=== PATIENT | female | born 1960 | race Caucasian/White ===

== ENCOUNTER 2020-08-20 16:12 | Outpatient (CLI) | payer OTHER, SELFPAY ==
--- NOTE | ~2020-08-20 | MM_ITS ---
EXAMINATION: MM screening [facility] BI w abhijit HISTORY: Screening mammogram TECHNIQUE: Craniocaudal and mediolateral oblique 3-D tomosynthesis images were obtained and synthetic 2-D images were generated. CAD analysis was submitted and interpreted. COMPARISON: 05/21/2019, 11/30/2017, 08/09/2015 BREAST PARENCHYMAL COMPOSITION: There are scattered areas of fibroglandular density. FINDINGS: There is stable architectural distortion in the upper outer quadrant of the left breast at the site of prior excisional biopsy. There is no evidence of suspicious mass, calcification, or archi tectural distortion to suggest malignancy in either breast. There has been no suspicious interval mami nge. IMPRESSION: 1. No mammographic evidence of malignancy. 2. Recommend routine screening mammography in one year. BI-RADS Category 2: Benign finding(s). Reviewed, dictated and finalized at location A. PROJECT MANAGER
== END 2020-08-20 16:13 | disposition home or self-care (01) ==
LOC: ANHIMG 16:14
PROVIDERS: PCP Family Medicine; Visit Provider Family Medicine
DX: Z12.31 Encounter for screening mammogram for malignant neoplasm of breast (principal)
CPT/HCPCS: 77063; 77067

== ENCOUNTER 2020-10-24 09:17 | Outpatient (CLI) | payer OTHER, SELFPAY | END 2020-10-24 09:18 | disposition home or self-care (01) | LOC: ANHCOVIDVC 09:17 | PROVIDERS: PCP Family Medicine | DX: Z23 Encounter for immunization (principal) | CPT/HCPCS: 0001A; 91300 ==

== ENCOUNTER 2020-11-17 09:18 | Outpatient (CLI) | payer OTHER, SELFPAY | END 2020-11-17 09:19 | disposition home or self-care (01) | LOC: ANHCOVIDVC 09:18 | PROVIDERS: PCP Family Medicine | DX: Z23 Encounter for immunization (principal) | CPT/HCPCS: 0002A; 91300 ==

== ENCOUNTER 2021-11-10 16:34 | Outpatient (CLI) | payer OTHER, SELFPAY ==
--- NOTE | ~2021-11-10 | MM_ITS ---
EXAMINATION: MM screening [facility] BI w abhijit HISTORY: Screening mammogram TECHNIQUE: Craniocaudal and mediolateral oblique 3-D tomosynthesis images were obtained and synthetic 2-D images were generated. CAD analysis was submitted and interpreted. COMPARISON: 08/20/2020, 05/21/2019 BREAST PARENCHYMAL COMPOSITION: There are scattered areas of fibroglandular density. FINDINGS: Again noted is stable architectural distortion in the upper outer quadrant of the left dena st at the site of prior excisional biopsy. There is no suspicious mass, calcification, or architectur al distortion to suggest malignancy in either breast. There has been no suspicious interval change. IMPRESSION: 1. No mammographic evidence of malignancy. 2. Recommend routine screening mammography in one year. BI-RADS Category 2: Benign finding(s). Reviewed, dictated and finalized at location A.
== END 2021-11-10 16:35 | disposition home or self-care (01) ==
LOC: ANHIMG 16:35
PROVIDERS: PCP Family Medicine; Visit Provider Family Medicine
DX: Z12.31 Encounter for screening mammogram for malignant neoplasm of breast (principal)
CPT/HCPCS: 77063; 77067

== ENCOUNTER 2022-04-29 01:21 | Day surgery (SDC) | payer OTHER, SELFPAY ==
[2022-04-14 14:12] VITALS: BMI 22.8
--- NOTE | 2022-04-28 10:19 | WPDANESEPPF ---
Anes - Initial Pre Proc Eval Procedure: Operation Date: 04/29/22 08:30 Proposed Procedures p Screening Colonoscopy - Artis Kwon MD Date/Time: 04/28/22 10:19 Surgeon: Artis Kwon MD Pre Op Diagnosis: neoplasm screening Patient Data Age: 61 Gender: F Height: 1.75 m Weight: 70 kg Allergies Allergy/AdvReac Type Severity Reaction Status Date / Time azithromycin Allergy Unknown gi upset Verified 04/29/22 07:12 cephalexin Allergy Unknown sob, upset Verified 04/29/22 07:12 stomach Sulfa (Sulfonamide Allergy Unknown Skin Verified 04/29/22 07:12 Antibiotics) Reaction Home Medications Medication Instructions Recorded Confirmed Type ascorbate calcium (vitamin C) 500 500 mg PO DAILY 11/18/21 04/29/22 History mg tablet calcium carbonate 400 mg calcium 400 mg PO DAILY 11/18/21 04/29/22 History (1,000 mg) chewable tablet (Antacid Ultra Strength) magnesium sulfate 100 mg capsule 100 mg PO DAILY 11/18/21 04/29/22 History multivitamin (Daily Multi-Vitamin 1 tablet PO DAILY 11/18/21 04/29/22 History tablet) omega-3 fatty acids-fish oil 360 1 cap PO DAILY 11/18/21 04/29/22 History mg-1,200 mg capsule (Fish Oil) triamcinolone acetonide 0.1 % 1 applic topical TID #453.6 grams 02/09/22 04/29/22 Rx topical cream Patient hx anesthesia problems: none Family hx anesthesia problems: none Results Review: All pre-operative results and documents have been reviewed as part of the pre-operative evaluation. [facility] Surgical History Surgical History History of removal of cyst Family History Family History (Updated 11/18/21 @ 15:37 by Yolanda Mcguire CMA) Mother Lung cancer Social History Social History (Updated 11/18/21 @ 15:38 by Yolanda Mcguire CMA) Smoking status: Former smoker Second hand tobacco smoke exposure: No Alcohol intake: current Drinks per week: 2 Alcohol use details: OCCASIONAL Substance use type: does not use Living arrangements: with family Spiritual care concerns: No Anes - Eval Final PreProcedure Day of Procedure 04/28/22 10:19 Patient weight: normal Heart: regular rate and rhythm Lungs: clear to auscultation and normal air movement Airway: Mallampati scale class II Neurological: alert and oriented Last oral intake: >/= 8 hours ASA classification: II Emergent: no Anesthetic plan: proceed Anesthesia type and monitoring: general GIVS and standard monitoring Results Review: All pre-operative results and documents have been reviewed as part of the pre-operative evaluation. Informed Consent: The patient's anesthetic plan and its attendant risks and benefits were discussed with the patient/family/POA. Questions were solicited and answers provided to the satisfaction of the patient/family/POA.
[2022-04-29 07:13] VITALS: BP 149/67; PULSE 58; RESP 16; TEMP 36.3; O2SAT 100
[2022-04-29] MEDS: LACTATED RINGERS 1,000 ML 150 ML IV CONT (07:20)
--- NOTE | 2022-04-29 07:55 | PM.IMHP ---
H&P: HPI History of Present Illness Date/Time: 04/29/22 07:55 Chief Complaint: Neoplasia screening. Narrative: This is a 61-year-old white female patient presents for neoplasia screening colonoscopy. patient states bowel habits are currently normal. She denies abdominal pain. She denies any blood in his stools. Family history is noncontributory. Last colonoscopy 2009 was unremarkable. Review of Systems Review of Systems: Review of systems noncontributory. [facility] Surgical History Surgical History History of removal of cyst Family History Family History (Updated 11/18/21 @ 15:37 by Yolanda Mcguire CMA) Mother Lung cancer Social History Social History (Updated 11/18/21 @ 15:38 by Yolanda Mcguire CMA) Smoking status: Former smoker Second hand tobacco smoke exposure: No Alcohol intake: current Drinks per week: 2 Alcohol use details: OCCASIONAL Substance use type: does not use Living arrangements: with family Spiritual care concerns: No Meds Home Medications and Allergies Home Medications Medication Instructions Recorded Confirmed Type ascorbate calcium (vitamin C) 500 500 mg PO DAILY 11/18/21 04/29/22 History mg tablet calcium carbonate 400 mg calcium 400 mg PO DAILY 11/18/21 04/29/22 History (1,000 mg) chewable tablet (Antacid Ultra Strength) magnesium sulfate 100 mg capsule 100 mg PO DAILY 11/18/21 04/29/22 History multivitamin (Daily Multi-Vitamin 1 tablet PO DAILY 11/18/21 04/29/22 History tablet) omega-3 fatty acids-fish oil 360 1 cap PO DAILY 11/18/21 04/29/22 History mg-1,200 mg capsule (Fish Oil) triamcinolone acetonide 0.1 % 1 applic topical TID #453.6 grams 02/09/22 04/29/22 Rx topical cream Allergies Allergy/AdvReac Type Severity Reaction Status Date / Time azithromycin Allergy Unknown gi upset Verified 04/29/22 07:12 cephalexin Allergy Unknown sob, upset Verified 04/29/22 07:12 stomach Sulfa (Sulfonamide Allergy Unknown Skin Verified 04/29/22 07:12 Antibiotics) Reaction Vital Signs Vital Signs - 24 hr 04/29/22 07:13 Temperature 97.3 F L Pulse Rate 58 L Respiratory Rate 16 Blood Pressure 149/67 H Pulse Oximetry 100 Oxygen Delivery Room Air Exam Narrative: Physical exam reveals patient be alert. Vital signs stable. HEENT exam is unremarkable. Patient is anicteric. Lungs are clear to auscultation and percussion. Heart is without murmur or extra sounds. Abdomen bowel sounds are present soft nontender with no organomegaly. Digital external rectal exam is normal. Assessment and Plan Assessment and plan (1) Encounter for screening colonoscopy: Code(s): Z12.11 - Encounter for screening for malignant neoplasm of colon Status: Acute Assessment and Plan: Patient presents for screening colonoscopy. Appears to be at average risk for colon polyps. Further recommendations will be given after endoscopy.
[2022-04-29 09:00] VITALS: BP 135/72; PULSE 67; RESP 16; O2SAT 100
[2022-04-29 09:10] VITALS: BP 143/85; PULSE 66; RESP 15; O2SAT 100
[2022-04-29 09:20] VITALS: BP 145/82; PULSE 64; RESP 15; O2SAT 100
== END 2022-04-29 09:22 | disposition home or self-care (01) ==
PROVIDERS: PCP Family Medicine; Visit Provider Internal Medicine Gastroenterology
PROC: 0DJD8ZZ Inspection of Lower Intestinal Tract, Via Natural or Artificial Opening Endoscopic (ICD-10-PCS; CPT 45378; principal; 2022-04-29 08:30)
DX: Z12.11 Encounter for screening for malignant neoplasm of colon (principal); K64.8 Other hemorrhoids; Z87.891 Personal history of nicotine dependence
CPT/HCPCS: 45378; J2704; J7120

== ENCOUNTER 2023-04-12 14:24 | Outpatient (CLI) | payer BC, SELFPAY ==
--- NOTE | ~2023-04-12 | MM_ITS ---
EXAMINATION: MM screening [facility] BI w abhijit HISTORY: Screening mammogram TECHNIQUE: Craniocaudal and mediolateral oblique 3-D tomosynthesis images were obtained and synthetic 2-D images were generated. CAD analysis was submitted and interpreted. COMPARISON: 11/10/2021, 08/20/2020, 05/21/2019 BREAST PARENCHYMAL COMPOSITION: There are scattered areas of fibroglandular density. FINDINGS: There is stable architectural distortion in the upper outer quadrant of the left breast at the site of prior excisional biopsy. No suspicious mass, calcification, or architectural distortion a re identified in either breast to suggest malignancy. There has been no suspicious interval change. IMPRESSION: 1. No mammographic evidence of malignancy. 2. Recommend routine screening mammography in one year. BI-RADS Category 2: Benign finding(s). Reviewed, dictated and finalized at location A.
== END 2023-04-12 14:25 | disposition home or self-care (01) ==
PROVIDERS: PCP Family Medicine; Visit Provider Family Medicine
DX: Z12.31 Encounter for screening mammogram for malignant neoplasm of breast (principal)
CPT/HCPCS: 77063; 77067

== ENCOUNTER 2024-04-25 12:49 | Outpatient (CLI) | payer MEDICARE, SELFPAY ==
--- NOTE | ~2024-04-25 | DEXA_ITS ---
Bone Density Report Name: HERNAN VILLATORO Age: 63 Sex: Female Ethnicity: White Date of : 1960 Indication: postmenopausal; screening for osteoporosis; height loss; Referring Provider: ALIA WEATHERS Study: Bone densitometry was performed. Exam Date: April 25, 2024 Accession number: [id number] Bone Density: Region BMD T-score Z-score Classification AP Spine(L1-L4) 1.066 0.2 2.0 Normal Femoral Neck (Left) 0.754 -0.9 0.7 Normal Total Hip (Left) 0.898 -0.4 0.9 Normal Femoral Neck (Right) 0.770 -0.7 0.8 Normal Total Hip (Right) 0.939 0.0 1.2 Normal Total Hip Mean 0.919 -0.2 1.1 Normal World Health Organization criteria for BMD impression classify patients as: Normal (T-score at or above -1.0), Osteopenia (T-score between -1.0 and -2.5), or Osteoporosis (T-score at or below -2.5). 10-year Fracture Risk: FRAX not reported because: All T-scores for Spine Total, Hip Total, Femoral Neck at or above -1.0 Clinical Information Provided by Patient: Has used the following medications: Vitamin D, Calcium Patient maximum height was 70.0 Does not regularly consume dairy products Drinks caffeinated beverages Onset of menses at age 11 Number of children 5 Missed period for more than 6 months in a row Impression: The patient has normal bone mass. Discussion: BONE DENSITY IS ABOVE THE MINIMUM DESIRABLE LEVEL AT ALL SKELETAL SITES TESTED. This patient?s bone mineral density is above the minimum desirable level (T-score -1.0 or better) at all sites measured. The patient should follow a healthful lifestyle (good nutrition with adequate calcium and vitamin D, and appropriate weight-bearing exercise). Follow-Up: Consider repeating this study in 5 years or sooner if there is some new clinical indication. Reported by: ONUR on 04/25/2024 1:17:00 PM. Reviewed, dictated and finalized at location APancho ALBA
== END 2024-04-25 12:50 | disposition home or self-care (01) ==
LOC: ANHIMG 12:53
PROVIDERS: PCP Emergency Medicine; Visit Provider Emergency Medicine
DX: N95.9 Unspecified menopausal and perimenopausal disorder (principal)
CPT/HCPCS: 77080

== ENCOUNTER 2024-05-16 16:23 | Outpatient (CLI) | payer MEDICARE, SELFPAY ==
--- NOTE | ~2024-05-16 | MM_ITS ---
EXAMINATION: MM screening [facility] BI w abhijit HISTORY: Screening mammogram TECHNIQUE: Craniocaudal and mediolateral oblique 3-D tomosynthesis images were obtained and synthetic 2-D images were generated. CAD analysis was submitted and interpreted. COMPARISON: 04/12/2023, 11/10/2021, 08/20/2020, 11/30/2017 BREAST PARENCHYMAL COMPOSITION:Not Dense. There are scattered areas of fibroglandular density. FINDINGS: Stable area of distortion in the left breast, especially on CC view. No suspicious mass, ca lcification, or architectural distortion are identified in either breast to suggest malignancy. There has been no suspicious interval change. IMPRESSION: No mammographic evidence of malignancy. Recommend routine screening mammography in one year. BI-RADS Category 2: Benign finding(s). Reviewed, dictated and finalized at location .
== END 2024-05-16 16:24 | disposition home or self-care (01) ==
LOC: ANHIMG 16:28
PROVIDERS: PCP Family Medicine; Visit Provider Family Medicine
DX: Z12.31 Encounter for screening mammogram for malignant neoplasm of breast (principal)
CPT/HCPCS: 77063; 77067